=== PATIENT | male | born 1995 | race Caucasian/White ===

== ENCOUNTER 2023-03-12 07:33 | Emergency (ER) | payer SELFPAY ==
[2023-03-12] VITALS (11 sets, daily range): BP systolic 101–113; BP diastolic 64–76
[~2023-03-12] VITALS: Ht 167.6 cm; Wt 61.4 kg
[~2023-03-12 07:33] MED LIST: AMOXICILLIN500 MG PO; FAMCICLOVIR500 MG PO; ROBITUSSIN AC10 ML PO; XANAX0.25 MG PO
[2023-03-12 09:27] LABS: BASO% 0.9 % (0-3); EOS% 4.2 % (0-8); HEMATOCRIT 44.1 % (39.0-50.0); HEMOGLOBIN 14.8 g/dl (14.0-18.0); IMMATURE GRANULOCYTES 0.2 % (0.0-5.0); LYMPH% 25.9 % (15-41); MEAN CELL VOLUME 91.9 fL CALC (80.0-100.0); MEAN CORPUSCULAR HGB 30.8 pG CALC (26.0-32.0); MEAN CORPUSCULAR HGB CONC 33.6 g/dL CAL (32.0-36.0); MONO% 12.6 % (2-13); NEUT# 2.4 thou/uL (1.82-7.42); NEUT% 56.2 % (42-76); RED BLOOD COUNT 4.8 mill/uL (4.70-6.10); RED CELL DISTRI WIDTH 11.7 % (11.5-15.5)
[2023-03-12 09:54] LABS: ALBUMIN 4.2 g/dL (3.2-5.0); ALKALINE PHOSPHATASE 63 u/l (38-126); ANION GAP 10 (6-22 (CALC)); BUN 10 mg/dL (9-20); BUN/CREATININE RATIO 12 (12-20 (CALC)); CARBON DIOXIDE 26 mmol/l (22-30); CHLORIDE 107 mmol/l (95-108); CREATININE 0.8 mg/dL (0.7-1.3); GFR FOR AFR.AMER. > 60 ML/MIN (>=60 (CALC)); GFR OTHER RACES > 60 ML/MIN (>=60 (CALC)); LIPASE 71 u/l (23-300); POTASSIUM 3.9 mmol/l (3.5-5.1); SGOT/AST 30 u/l (17-59); SODIUM 139 mmol/l (137-146); TOTAL PROTEIN 6.9 g/dL (6.3-8.2)
[2023-03-12 10:23] LABS: URINE BILIRUBIN - DIPSTICK Negative (NEGATIVE); URINE BLOOD DIPSTICK Large (NEGATIVE); URINE GLUCOSE - DIPSTICK Negative (NEGATIVE); URINE KETONE Trace mg/dL (NEGATIVE); URINE LEUK ESTERASE Negative (NEGATIVE); URINE NITRITE - DIPSTICK Negative (Negative); URINE PROTEIN - DIPSTICK 30 mg/dL (NEG-TRACE); URINE SPECIFIC GRAVITY 1.015; URINE UROBILINOGEN - DIPSTICK 0.2 E.U./dL (0.2)
[2023-03-12 10:34] LABS: URINE COLOR Yellow
[2023-03-12 10:36] LABS: URINE MUCUS FEW hpf (NONE-FEW); URINE SQUAMOUS EPITHELIAL CELL FEW EPI/hpf (0-FEW); URINE WBC 0-2 WBC/hpf (0-5)
[2023-03-12] MEDS ORDERED: KEFLEX500 MG PO (11:17)
[2023-03-12] MEDS ORDERED: TAMSULOSIN0.4 MG PO (11:17)
[2023-03-12] MEDS ORDERED: PERCOCET 5/325M1 TAB PO (11:19)
== END 2023-03-12 11:26 | disposition home or self-care (01) | DRG 694 ==
LOC: ED 07:33
PROVIDERS: Emergency Medicine
DX: N20.1 Calculus of ureter (principal); F17.200 Nicotine dependence, unspecified, uncomplicated; Z87.442 Personal history of urinary calculi